=== PATIENT | male | born 1990 | race Caucasian/White ===

== ENCOUNTER 2018-02-24 09:45 | Outpatient (RCR) | payer BC | END 2018-05-25 | disposition home or self-care (01) | LOC: LAB 09:45 | PROVIDERS: ATTEND Family Medicine | DX: N46.9 Male infertility, unspecified (principal) | CPT/HCPCS: 89320 ==

== ENCOUNTER 2019-11-02 13:10 | Outpatient (RCR) | payer BC ==
[2019-11-02 14:51] LABS: SEMEN VOLUME 3.5 ML (1.5-5.0)
== END 2020-01-31 | disposition still patient (30) ==
LOC: LAB 13:10 → EDSTATUS 13:24
PROVIDERS: ATTEND Family Medicine
DX: Z31.41 Encounter for fertility testing (principal)
CPT/HCPCS: 89320